=== PATIENT | female | born 1990 | race Caucasian/White ===

== ENCOUNTER 2017-03-10 15:24 | Inpatient (IN) | payer OTHER ==
[2017-03-10 17:17] VITALS: BMI 24.4
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
[2017-03-10] MEDS ORDERED: MAGNESIUM CITRATE 300 ML BOTTLE PO PRN (20:11)
[2017-03-10] MEDS ORDERED: MAGNESIUM HYDROX 2400MG/30ML ORAL SUSPENSION 30 ML CUP PO PRN (20:11)
[2017-03-10] MEDS ORDERED: NICOTINE 14 MG/24 HOURS TOPICAL PATCH TD PRN (20:11)
[2017-03-10] MEDS ORDERED: MENTHOL/PHENOL 1 EACH UD MM PRN (20:11)
[2017-03-10] MEDS ORDERED: MAG HYDROX/AL HYDROX/SIMETH 30 ML UNIT-DOSE CUP PO PRN (20:11)
[2017-03-10] MEDS ORDERED: ACETAMINOPHEN 325 MG TABLET (FP) PO PRN (20:11)
[2017-03-10] MEDS ORDERED: P-EPHED 60MG/TRIPROLIDI 2.5MG TABLET PO PRN (20:11)
[2017-03-10] MEDS ORDERED: IBUPROFEN 400 MG TABLET (FP) PO PRN (20:11)
[2017-03-10] MEDS ORDERED: guaiFENesin/D-METHORPHAN HB 10 ML UNIT-DOSE CUPS PO PRN (20:11)
[2017-03-10] MEDS ORDERED: LOPERAMIDE HCL 2 MG CAPSULE PO PRN (20:11)
[2017-03-10] MEDS ORDERED: ALBUTEROL SO4 6.7 GM HFA INHALER IH PRN (20:13)
[2017-03-10] MEDS: THIAMINE HCL 100 MG TABLET (FP) PO SCH (22:41)
[2017-03-10] MEDS ORDERED: TUBERCULIN PPD 5 TU/0.1ML VIAL ID ONE (22:42)
[2017-03-10 23:05] LABS: URINE APPEARANCE CLOUDY; URINE BILIRUBIN NEGATIVE (NEGATIVE); URINE BLOOD NEGATIVE (NEGATIVE); URINE COLOR RED; URINE GLUCOSE (UA) NEGATIVE (NEGATIVE); URINE KETONE NEGATIVE (NEGATIVE); URINE NITRITE NEGATIVE (NEGATIVE); URINE PROTEIN NEGATIVE (NEGATIVE); URINE UROBILINOGEN 4.0 E.U/dl E.U./dl (0.2-1.0)
[2017-03-10 23:14] LABS: URINE LEUK ESTERASE 3+ (NEGATIVE)
[2017-03-10 23:18] LABS: URINE BACTERIA FEW /hpf (NONE SEEN); URINE MUCUS MODERATE; URINE RBC 2 /hpf (0-3); URINE WBC 30 /hpf (3-5); YEAST RARE
[2017-03-11] MEDS ORDERED: METHADONE HCL 40 MG DISPERSABLE TABLET PO SCH (07:15)
[2017-03-11] MEDS ORDERED: METHADONE HCL 10 MG TABLET ONE (07:30)
[2017-03-11] MEDS ORDERED: METHADONE HCL 40 MG DISPERSABLE TABLET ONE (07:30)
[2017-03-11] MEDS: METHADONE 80 MG, METHADONE 20 MG PO SCH (07:34)
[2017-03-11] MEDS: PRENATAL VITAMINS W/ FOLIC ACID TABLET (FP) PO SCH (09:56)
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
--- NOTE | 2017-03-11 11:58 | EKG ---
Test Reason : Blood Pressure : / mmHG Vent. Rate : 064 BPM Atrial Rate : 064 BPM P-R Int : 138 ms QRS Dur : 080 ms QT Int : 420 ms P-R-T Axes : 037 060 046 degrees QTc Int : 433 ms NORMAL SINUS RHYTHM NORMAL ECG NO PREVIOUS ECGS AVAILABLE Confirmed by MAYURI KRUEGER, ROSIE ([id number]) on 03/11/2017 11:58:18 AM Referred By: Dann Waterman Confirmed By:ROSIE MESSINA MD
[2017-03-11] MEDS: NICOTINE POLACRILEX 2 MG GUM BUC PRN (14:03)
[2017-03-11 14:39] LABS: MCH 29.6 pg (25.7-33.7); MCHC 33.2 g/dl (32.0-36.0); MEAN CELL VOLUME 89.1 fl (80-96); MEAN PLT VOLUME 8.7 fl (7.5-11.1); PLATELET COUNT 256 K/MM3 (134-434); RDW 13.8 % (11.6-15.6)
[2017-03-11 14:48] LABS: ALBUMIN 3.7 g/dl (3.4-5.0); ANION GAP 7 (8-16); BILIRUBIN,TOTAL 0.4 mg/dL (0.2-1.0); CALCIUM 9.6 mg/dL (8.5-10.1); CO2 35 mmol/L (21-32); CREATININE 0.6 mg/dL (0.55-1.02); GLUCOSE,RANDOM 61 mg/dL (74-106); SGOT/AST 45 U/L (15-37); SGPT/ALT 77 U/L (12-78); TOT PROT 7.1 g/dl (6.4-8.2)
[2017-03-11 14:49] LABS: ALK PHOS 125 U/L (45-117)
--- NOTE | 2017-03-11 15:19 | PN ---
[facility] Progress Note Note: Stye rt. eye lower lid P : maxitrol oin't bid
[2017-03-11] MEDS: NEO/POLYMYX B SULF/DEXAMETH OPHTHALMIC OINTMENT 3.5 GM OD SCH (21:10)
[2017-03-11] MEDS: THIAMINE HCL 100 MG TABLET (FP) PO SCH (21:10)
[2017-03-11] MEDS: QUEtiapine FUMARATE 50 MG TABLET PO SCH (21:11)
[2017-03-12] MEDS ORDERED: METHADONE HCL 40 MG DISPERSABLE TABLET ONE (03:14)
[2017-03-12] MEDS ORDERED: METHADONE HCL 10 MG TABLET ONE (03:14)
[2017-03-12] MEDS: METHADONE 80 MG, METHADONE 20 MG PO SCH (06:04)
[2017-03-12] MEDS ORDERED: PT OWN MED DRAWER 7, Y5N ONE ×2 (08:14→09:57)
[2017-03-12] MEDS: PRENATAL VITAMINS W/ FOLIC ACID TABLET (FP) PO SCH (09:57)
[2017-03-12] MEDS: NEO/POLYMYX B SULF/DEXAMETH OPHTHALMIC OINTMENT 3.5 GM OD SCH ×2 (09:58→21:08)
[2017-03-12] MEDS: THIAMINE HCL 100 MG TABLET (FP) PO SCH (21:07)
[2017-03-12] MEDS: QUEtiapine FUMARATE 50 MG TABLET PO SCH (21:07)
[2017-03-13] MEDS ORDERED: METHADONE HCL 10 MG TABLET ONE (05:56)
[2017-03-13] MEDS ORDERED: METHADONE HCL 40 MG DISPERSABLE TABLET ONE (05:56)
[2017-03-13] MEDS: METHADONE 80 MG, METHADONE 20 MG PO SCH (06:33)
[2017-03-13] MEDS ORDERED: PT OWN MED DRAWER 7, Y5N ONE (08:24)
[2017-03-13] MEDS: PRENATAL VITAMINS W/ FOLIC ACID TABLET (FP) PO SCH (09:49)
[2017-03-13] MEDS: NEO/POLYMYX B SULF/DEXAMETH OPHTHALMIC OINTMENT 3.5 GM OD SCH ×2 (09:49→21:03)
--- NOTE | 2017-03-13 13:31 | PN ---
S Progress Note Note: urine for c/s showed lactose fermenting gram negative bacilli will start on bactrim ds 1 tab po bid,fluid
[2017-03-13] MEDS: SULFAMETHOXAZOLE/TRIMETHOPRIM 800MG/160MG D.S. TABLET PO SCH ×2 (14:26→21:03)
[2017-03-13] MEDS: NICOTINE POLACRILEX 2 MG GUM BUC PRN (14:27)
[2017-03-13] MEDS: QUEtiapine FUMARATE 50 MG TABLET PO SCH (21:03)
[2017-03-13] MEDS: THIAMINE HCL 100 MG TABLET (FP) PO SCH (21:03)
[2017-03-14] MEDS ORDERED: METHADONE HCL 10 MG TABLET ONE (03:15)
[2017-03-14] MEDS ORDERED: METHADONE HCL 40 MG DISPERSABLE TABLET ONE (03:16)
[2017-03-14] MEDS: METHADONE 80 MG, METHADONE 20 MG PO SCH (06:22)
[2017-03-14] MEDS ORDERED: PT OWN MED DRAWER 7, Y5N ONE ×2 (08:01→20:03)
[2017-03-14] MEDS: SULFAMETHOXAZOLE/TRIMETHOPRIM 800MG/160MG D.S. TABLET PO SCH ×2 (09:58→21:20)
[2017-03-14] MEDS: PRENATAL VITAMINS W/ FOLIC ACID TABLET (FP) PO SCH (09:58)
[2017-03-14] MEDS: NEO/POLYMYX B SULF/DEXAMETH OPHTHALMIC OINTMENT 3.5 GM OD SCH ×2 (09:59→21:20)
[2017-03-14] MEDS: THIAMINE HCL 100 MG TABLET (FP) PO SCH (21:20)
[2017-03-14] MEDS: diphenhydrAMINE HCL 50 MG CAPSULE PO PRN (21:20)
[2017-03-14] MEDS: QUEtiapine FUMARATE 50 MG TABLET PO SCH (21:20)
[2017-03-15] MEDS ORDERED: METHADONE HCL 40 MG DISPERSABLE TABLET ONE (03:19)
[2017-03-15] MEDS ORDERED: METHADONE HCL 10 MG TABLET ONE (03:19)
[2017-03-15] MEDS: METHADONE 80 MG, METHADONE 20 MG PO SCH (06:16)
[2017-03-15] MEDS ORDERED: PT OWN MED DRAWER 7, Y5N ONE ×2 (08:07→19:35)
[2017-03-15] MEDS: SULFAMETHOXAZOLE/TRIMETHOPRIM 800MG/160MG D.S. TABLET PO SCH ×2 (09:38→21:04)
[2017-03-15] MEDS: PRENATAL VITAMINS W/ FOLIC ACID TABLET (FP) PO SCH (09:38)
[2017-03-15] MEDS: NEO/POLYMYX B SULF/DEXAMETH OPHTHALMIC OINTMENT 3.5 GM OD SCH ×2 (09:38→21:04)
[2017-03-15] MEDS: THIAMINE HCL 100 MG TABLET (FP) PO SCH (21:04)
[2017-03-15] MEDS: diphenhydrAMINE HCL 50 MG CAPSULE PO PRN ×2 (21:04→22:39)
[2017-03-15] MEDS: QUEtiapine FUMARATE 50 MG TABLET PO SCH (21:04)
[2017-03-16] MEDS ORDERED: METHADONE HCL 40 MG DISPERSABLE TABLET ONE (03:19)
[2017-03-16] MEDS ORDERED: METHADONE HCL 10 MG TABLET ONE (03:19)
[2017-03-16] MEDS: METHADONE 80 MG, METHADONE 20 MG PO SCH (06:34)
[2017-03-16] MEDS: PRENATAL VITAMINS W/ FOLIC ACID TABLET (FP) PO SCH (10:06)
[2017-03-16] MEDS: SULFAMETHOXAZOLE/TRIMETHOPRIM 800MG/160MG D.S. TABLET PO SCH ×2 (10:06→21:06)
[2017-03-16] MEDS: NEO/POLYMYX B SULF/DEXAMETH OPHTHALMIC OINTMENT 3.5 GM OD SCH ×2 (10:08→21:07)
--- NOTE | 2017-03-16 17:14 | PN ---
Psychiatric Progress Note Vital Signs: Vital Signs Period Temp Pulse Resp BP Sys/Osei Pulse Ox Last 24 Hr 97.4 F 77 18 111/68 Date of Session: 03/16/17 Chief Complaint:: "Sleep is still a problem,takes time to fall asleep." HPI: Opioid,Sedative deprendence comorbid with Bipolar II disorder. ROS: Significant for Hep C. Current Medications: Active Medications Generic Name Dose Route Start Last Admin Trade Name Freq PRN Reason Stop Dose Admin Acetaminophen 650 mg 03/10/17 20:11 Tylenol - PO Q4H PRN PAIN Al Hydroxide/Mg Hydroxide 30 ml 03/10/17 20:11 Mylanta Oral Suspension - PO Q6H PRN DYSPEPSIA Albuterol Sulfate 2 puff 03/10/17 20:13 Ventolin Hfa Inhaler - IH Q4H PRN SHORT OF BREATH/WHEEZING Bupropion HCl 150 mg 03/11/17 13:57 03/16/17 10:06 Wellbutrin Xl - PO 150 mg DAILY LIVIA Administration Diphenhydramine HCl 50 mg 03/10/17 20:11 03/15/17 22:39 Benadryl - PO 50 mg HSMR1 PRN Administration INSOMNIA Eucalyptus/Menthol/Phenol/Sorbitol 1 each 03/10/17 20:11 Cepastat Lozenge - MM Q4H PRN SORE THROAT Guaifenesin 10 ml 03/10/17 20:11 Robitussin Dm - PO Q6H PRN COUGH Ibuprofen 400 mg 03/10/17 20:11 Motrin - PO Q6H PRN SEVERE PAIN Loperamide HCl 4 mg 03/10/17 20:11 Imodium - PO Q6H PRN DIARRHEA Magnesium Citrate 300 ml 03/10/17 20:11 Citroma - PO Q48H PRN CONSTIPATION Magnesium Hydroxide 30 ml 03/10/17 20:11 Milk Of Magnesia - PO DAILY PRN CONSTIPATION Methadone HCl 80 mg/ Methadone 100 mg 03/11/17 07:30 03/16/17 06:34 HCl 20 mg PO 100 mg DAILY@0600 LIVIA Administration Neomycin/Polymyxin/Dexamethasone 1 applic 03/11/17 22:00 03/16/17 10:08 Maxitrol Eye Ointment - OD 03/18/17 21:59 1 applic BID LIVIA Administration Nicotine 14 mg 03/10/17 20:11 Nicoderm Patch - TD DAILY PRN WITHDRAWAL(CONT SUBST) Nicotine Polacrilex 2 mg 03/10/17 20:11 03/13/17 14:27 Nicorette Gum - BUC 2 mg Q2H PRN Administration NICOTINE REPLACEMENT RX Multivit/Folic Acid/Iron 1 tab 03/11/17 10:00 03/16/17 10:06 Vitamins (Sjr) - PO 1 tab DAILY LIVIA Administration Pseudoephedrine/Triprolidine 1 combo 03/10/17 20:11 Actifed - PO TID PRN NASAL CONGESTION Thiamine HCl 100 mg 03/10/17 22:00 03/15/17 21:04 Vitamin B1 - PO 100 mg HS LIVIA Administration Trimethoprim/Sulfamethoxazole 1 each 03/13/17 14:15 03/16/17 10:06 Bactrim Ds - PO 1 each BID LIVIA Administration Current Side Effect: No Lab tests ordered: No Lab tests reviewed: Yes Provider note:: Patient addressed ongoing sleeping difficulties,stating that it takes time to fall asleep and her sleep pattern is vry interrupted .Patient was seen in my office today,chart was revuewed.Current medications has been discussed with the patient .Seroquel 50 mg po hs will be adjusted to 100 mg po hs. supportive therapy provided. Total face to face time:: 30 Mental Status Exam - Mental Status Exam Alert and Oriented to: Time, Place, Person Cognitive Function: Grossly Intact Patient Appearance: Well Groomed Mood: Anxious Affect: Mood Congruent Patient Behavior: Cooperative Speech Pattern: Clear Voice Loudness: Normal Thought Process: Goal Oriented Thought Disorder: Not Present Hallucinations: Denies Homicidal Ideation: Denies Insight/Judgement: Fair Sleep: Difficulty falling asleep Appetite: Good Muscle strength/Tone: Normal Gait/Station: Normal Psychiatric Treatment Plan - Problem List (1) Nicotine dependence Current Visit: Yes Qualifiers: Nicotine product type: cigarettes Substance use status: in withdrawal Qualified Code(s): F17.213 - Nicotine dependence, cigarettes, with withdrawal (2) Sedative, hypnotic or anxiolytic dependence with withdrawal, uncomplicated Current Visit: Yes (3) Asthma Current Visit: Yes Qualifiers: Asthma severity: mild intermittent Asthma complication type: with status asthmaticus Qualified Code(s): J45.22 - Mild intermittent asthma with status asthmaticus (4) Methadone maintenance therapy patient Current Visit: Yes Comment: 100 MG VERIFICATION PENDING (5) Bipolar II disorder Current Visit: Yes (6) Hepatitis C antibody test positive Current Visit: Yes
[2017-03-16] MEDS: THIAMINE HCL 100 MG TABLET (FP) PO SCH (21:06)
[2017-03-16] MEDS: QUEtiapine FUMARATE 100 MG TABLET (FP) PO SCH (21:08)
[2017-03-16] MEDS: diphenhydrAMINE HCL 50 MG CAPSULE PO PRN (21:08)
[2017-03-17] MEDS ORDERED: METHADONE HCL 10 MG TABLET ONE (05:49)
[2017-03-17] MEDS ORDERED: METHADONE HCL 40 MG DISPERSABLE TABLET ONE (05:49)
[2017-03-17] MEDS: METHADONE 80 MG, METHADONE 20 MG PO SCH (06:32)
[2017-03-17] MEDS: NEO/POLYMYX B SULF/DEXAMETH OPHTHALMIC OINTMENT 3.5 GM OD SCH ×2 (09:59→21:12)
[2017-03-17] MEDS: PRENATAL VITAMINS W/ FOLIC ACID TABLET (FP) PO SCH (09:59)
[2017-03-17] MEDS: SULFAMETHOXAZOLE/TRIMETHOPRIM 800MG/160MG D.S. TABLET PO SCH ×2 (09:59→21:11)
[2017-03-17] MEDS: diphenhydrAMINE HCL 50 MG CAPSULE PO PRN (21:11)
[2017-03-17] MEDS: QUEtiapine FUMARATE 100 MG TABLET (FP) PO SCH (21:11)
[2017-03-17] MEDS: THIAMINE HCL 100 MG TABLET (FP) PO SCH (21:11)
[2017-03-18] MEDS ORDERED: METHADONE HCL 40 MG DISPERSABLE TABLET ONE (03:17)
[2017-03-18] MEDS ORDERED: METHADONE HCL 10 MG TABLET ONE (03:17)
[2017-03-18] MEDS: METHADONE 80 MG, METHADONE 20 MG PO SCH (06:27)
[2017-03-18] MEDS ORDERED: PT OWN MED DRAWER 7, Y5N ONE (08:07)
[2017-03-18] MEDS: NEO/POLYMYX B SULF/DEXAMETH OPHTHALMIC OINTMENT 3.5 GM OD SCH (09:42)
[2017-03-18] MEDS: PRENATAL VITAMINS W/ FOLIC ACID TABLET (FP) PO SCH (09:42)
[2017-03-18] MEDS: SULFAMETHOXAZOLE/TRIMETHOPRIM 800MG/160MG D.S. TABLET PO SCH ×2 (09:42→21:12)
[2017-03-18] MEDS: diphenhydrAMINE HCL 50 MG CAPSULE PO PRN (21:12)
[2017-03-18] MEDS: THIAMINE HCL 100 MG TABLET (FP) PO SCH (21:12)
[2017-03-18] MEDS: QUEtiapine FUMARATE 50 MG TABLET PO SCH (21:13)
[2017-03-19] MEDS ORDERED: METHADONE HCL 10 MG TABLET ONE (06:10)
[2017-03-19] MEDS ORDERED: METHADONE HCL 40 MG DISPERSABLE TABLET ONE (06:11)
[2017-03-19] MEDS: METHADONE 80 MG, METHADONE 20 MG PO SCH (06:30)
[2017-03-19] MEDS: PRENATAL VITAMINS W/ FOLIC ACID TABLET (FP) PO SCH (09:46)
[2017-03-19] MEDS: SULFAMETHOXAZOLE/TRIMETHOPRIM 800MG/160MG D.S. TABLET PO SCH ×2 (09:46→21:04)
[2017-03-19] MEDS: QUEtiapine FUMARATE 50 MG TABLET PO SCH (21:03)
[2017-03-19] MEDS: diphenhydrAMINE HCL 50 MG CAPSULE PO PRN (21:04)
[2017-03-19] MEDS: THIAMINE HCL 100 MG TABLET (FP) PO SCH (21:04)
[2017-03-20] MEDS ORDERED: METHADONE HCL 10 MG TABLET ONE (03:17)
[2017-03-20] MEDS ORDERED: METHADONE HCL 40 MG DISPERSABLE TABLET ONE (03:17)
[2017-03-20] MEDS: METHADONE 80 MG, METHADONE 20 MG PO SCH (06:16)
[2017-03-20] MEDS: SULFAMETHOXAZOLE/TRIMETHOPRIM 800MG/160MG D.S. TABLET PO SCH ×2 (09:53→21:16)
[2017-03-20] MEDS: PRENATAL VITAMINS W/ FOLIC ACID TABLET (FP) PO SCH (09:53)
[2017-03-20] MEDS: diphenhydrAMINE HCL 50 MG CAPSULE PO PRN (21:16)
[2017-03-20] MEDS: THIAMINE HCL 100 MG TABLET (FP) PO SCH (21:16)
[2017-03-20] MEDS: QUEtiapine FUMARATE 50 MG TABLET PO SCH (21:17)
[2017-03-21] MEDS ORDERED: METHADONE HCL 40 MG DISPERSABLE TABLET ONE (05:39)
[2017-03-21] MEDS ORDERED: METHADONE HCL 10 MG TABLET ONE (05:39)
[2017-03-21] MEDS: METHADONE 80 MG, METHADONE 20 MG PO SCH (06:48)
[2017-03-21] MEDS: SULFAMETHOXAZOLE/TRIMETHOPRIM 800MG/160MG D.S. TABLET PO SCH ×2 (10:05→21:11)
[2017-03-21] MEDS: PRENATAL VITAMINS W/ FOLIC ACID TABLET (FP) PO SCH (10:05)
[2017-03-21] MEDS: THIAMINE HCL 100 MG TABLET (FP) PO SCH (21:11)
[2017-03-21] MEDS: QUEtiapine FUMARATE 50 MG TABLET PO SCH (21:11)
[2017-03-21] MEDS: diphenhydrAMINE HCL 50 MG CAPSULE PO PRN (21:12)
[2017-03-21] MEDS ORDERED: PT OWN MED DRAWER 7, Y5N ONE (21:48)
[2017-03-22] MEDS ORDERED: METHADONE HCL 40 MG DISPERSABLE TABLET ONE (05:30)
[2017-03-22] MEDS ORDERED: METHADONE HCL 10 MG TABLET ONE (05:30)
[2017-03-22] MEDS: METHADONE 80 MG, METHADONE 20 MG PO SCH (06:40)
[2017-03-22] MEDS: SULFAMETHOXAZOLE/TRIMETHOPRIM 800MG/160MG D.S. TABLET PO SCH ×2 (09:41→22:10)
[2017-03-22] MEDS: PRENATAL VITAMINS W/ FOLIC ACID TABLET (FP) PO SCH (09:41)
[2017-03-22] MEDS: QUEtiapine FUMARATE 50 MG TABLET PO SCH (21:06)
[2017-03-22] MEDS: THIAMINE HCL 100 MG TABLET (FP) PO SCH (21:06)
[2017-03-22] MEDS: diphenhydrAMINE HCL 50 MG CAPSULE PO PRN (21:06)
[2017-03-23] MEDS ORDERED: METHADONE HCL 10 MG TABLET ONE (05:38)
[2017-03-23] MEDS ORDERED: METHADONE HCL 40 MG DISPERSABLE TABLET ONE (05:38)
[2017-03-23] MEDS: METHADONE 80 MG, METHADONE 20 MG PO SCH (06:11)
[2017-03-23] MEDS ORDERED: PT OWN MED DRAWER 7, Y5N ONE (08:40)
[2017-03-23] MEDS: SULFAMETHOXAZOLE/TRIMETHOPRIM 800MG/160MG D.S. TABLET PO SCH ×2 (10:08→21:11)
[2017-03-23] MEDS: PRENATAL VITAMINS W/ FOLIC ACID TABLET (FP) PO SCH (10:09)
[2017-03-23] MEDS: QUEtiapine FUMARATE 50 MG TABLET PO SCH (21:11)
[2017-03-23] MEDS: THIAMINE HCL 100 MG TABLET (FP) PO SCH (21:11)
[2017-03-23] MEDS: diphenhydrAMINE HCL 50 MG CAPSULE PO PRN (21:11)
[2017-03-24] MEDS ORDERED: METHADONE HCL 40 MG DISPERSABLE TABLET ONE (03:10)
[2017-03-24] MEDS ORDERED: METHADONE HCL 10 MG TABLET ONE (03:10)
[2017-03-24] MEDS: METHADONE 80 MG, METHADONE 20 MG PO SCH (06:12)
[2017-03-24] MEDS: PRENATAL VITAMINS W/ FOLIC ACID TABLET (FP) PO SCH (10:09)
[2017-03-24] MEDS: SULFAMETHOXAZOLE/TRIMETHOPRIM 800MG/160MG D.S. TABLET PO SCH ×2 (10:09→21:12)
[2017-03-24] MEDS: QUEtiapine FUMARATE 50 MG TABLET PO SCH (21:12)
[2017-03-24] MEDS: THIAMINE HCL 100 MG TABLET (FP) PO SCH (21:12)
[2017-03-24] MEDS: diphenhydrAMINE HCL 50 MG CAPSULE PO PRN (21:12)
[2017-03-25] MEDS ORDERED: METHADONE HCL 10 MG TABLET ONE (03:07)
[2017-03-25] MEDS ORDERED: METHADONE HCL 40 MG DISPERSABLE TABLET ONE (03:08)
[2017-03-25] MEDS: METHADONE 80 MG, METHADONE 20 MG PO SCH (06:17)
[2017-03-25] MEDS: SULFAMETHOXAZOLE/TRIMETHOPRIM 800MG/160MG D.S. TABLET PO SCH ×2 (10:04→21:07)
[2017-03-25] MEDS: PRENATAL VITAMINS W/ FOLIC ACID TABLET (FP) PO SCH (10:04)
[2017-03-25] MEDS: diphenhydrAMINE HCL 50 MG CAPSULE PO PRN (21:05)
[2017-03-25] MEDS: QUEtiapine FUMARATE 50 MG TABLET PO SCH (21:05)
[2017-03-25] MEDS: THIAMINE HCL 100 MG TABLET (FP) PO SCH (21:05)
[2017-03-26] MEDS ORDERED: METHADONE HCL 10 MG TABLET ONE (03:08)
[2017-03-26] MEDS ORDERED: METHADONE HCL 40 MG DISPERSABLE TABLET ONE (03:08)
[2017-03-26] MEDS: METHADONE 80 MG, METHADONE 20 MG PO SCH (06:46)
[2017-03-26] MEDS: PRENATAL VITAMINS W/ FOLIC ACID TABLET (FP) PO SCH (09:56)
[2017-03-26] MEDS: SULFAMETHOXAZOLE/TRIMETHOPRIM 800MG/160MG D.S. TABLET PO SCH ×2 (09:56→21:11)
[2017-03-26] MEDS: THIAMINE HCL 100 MG TABLET (FP) PO SCH (21:10)
[2017-03-26] MEDS: QUEtiapine FUMARATE 50 MG TABLET PO SCH (21:10)
[2017-03-26] MEDS: diphenhydrAMINE HCL 50 MG CAPSULE PO PRN (21:11)
[2017-03-27] MEDS ORDERED: METHADONE HCL 40 MG DISPERSABLE TABLET ONE (05:40)
[2017-03-27] MEDS ORDERED: METHADONE HCL 10 MG TABLET ONE (05:40)
[2017-03-27] MEDS: METHADONE 80 MG, METHADONE 20 MG PO SCH (06:31)
[2017-03-27] MEDS: PRENATAL VITAMINS W/ FOLIC ACID TABLET (FP) PO SCH (10:09)
[2017-03-27] MEDS: QUEtiapine FUMARATE 50 MG TABLET PO SCH (21:11)
[2017-03-27] MEDS: diphenhydrAMINE HCL 50 MG CAPSULE PO PRN (21:12)
[2017-03-27] MEDS: THIAMINE HCL 100 MG TABLET (FP) PO SCH (21:12)
[2017-03-28] MEDS ORDERED: METHADONE HCL 40 MG DISPERSABLE TABLET ONE (06:19)
[2017-03-28] MEDS ORDERED: METHADONE HCL 10 MG TABLET ONE (06:19)
[2017-03-28] MEDS: METHADONE 80 MG, METHADONE 20 MG PO SCH (06:24)
[2017-03-28] MEDS ORDERED: COLLOIDAL OATMEAL 1 BAR EACH TP PRN (08:57)
[2017-03-28] MEDS: PRENATAL VITAMINS W/ FOLIC ACID TABLET (FP) PO SCH (09:06)
[2017-03-28] MEDS: QUEtiapine FUMARATE 50 MG TABLET PO SCH (21:03)
[2017-03-28] MEDS: diphenhydrAMINE HCL 50 MG CAPSULE PO PRN (21:03)
[2017-03-28] MEDS: THIAMINE HCL 100 MG TABLET (FP) PO SCH (21:05)
[2017-03-28] MEDS ORDERED: INSULIN DETEMIR 100 UNITS/ML MDV SQ ONE (22:33)
[2017-03-29] MEDS ORDERED: METHADONE HCL 10 MG TABLET ONE (03:10)
[2017-03-29] MEDS ORDERED: METHADONE HCL 40 MG DISPERSABLE TABLET ONE (03:10)
[2017-03-29] MEDS: METHADONE 80 MG, METHADONE 20 MG PO SCH (06:37)
[2017-03-29] MEDS: PRENATAL VITAMINS W/ FOLIC ACID TABLET (FP) PO SCH (09:49)
[2017-03-29] MEDS: diphenhydrAMINE HCL 50 MG CAPSULE PO PRN (21:09)
[2017-03-29] MEDS: THIAMINE HCL 100 MG TABLET (FP) PO SCH (21:09)
[2017-03-29] MEDS: QUEtiapine FUMARATE 50 MG TABLET PO SCH (21:09)
[2017-03-30] MEDS ORDERED: METHADONE HCL 40 MG DISPERSABLE TABLET ONE (03:10)
[2017-03-30] MEDS ORDERED: METHADONE HCL 10 MG TABLET ONE (03:10)
[2017-03-30] MEDS: METHADONE 80 MG, METHADONE 20 MG PO SCH (06:30)
[2017-03-30] MEDS: PRENATAL VITAMINS W/ FOLIC ACID TABLET (FP) PO SCH (09:52)
[2017-03-30] MEDS: THIAMINE HCL 100 MG TABLET (FP) PO SCH (21:12)
[2017-03-30] MEDS: QUEtiapine FUMARATE 50 MG TABLET PO SCH (21:12)
[2017-03-30] MEDS: diphenhydrAMINE HCL 50 MG CAPSULE PO PRN (21:12)
[2017-03-30] MEDS ORDERED: PT OWN MED DRAWER 7, Y5N ONE (23:08)
[2017-03-31] MEDS ORDERED: METHADONE HCL 10 MG TABLET ONE (05:39)
[2017-03-31] MEDS ORDERED: METHADONE HCL 40 MG DISPERSABLE TABLET ONE (05:39)
[2017-03-31] MEDS: METHADONE 80 MG, METHADONE 20 MG PO SCH (06:16)
[2017-03-31 06:33] VITALS: BP 102/64; PULSE 83; TEMP 98
--- NOTE | 2017-03-31 09:27 | PN ---
Psychiatric Progress Note Vital Signs: Vital Signs Period Temp Pulse Resp BP Sys/Osei Pulse Ox Last 24 Hr 98.0 F 83 16- 102/64 Date of Session: 03/30/17 Chief Complaint:: Discharge visit HPI: Patient addressed Opioid and Anxiolytic dependence comorbid with Bipolar disorder. ROS: Significant for BA,HEp C. Current Medications: Active Medications Generic Name Dose Route Start Last Admin Trade Name Freq PRN Reason Stop Dose Admin Acetaminophen 650 mg 03/10/17 20:11 Tylenol - PO Q4H PRN PAIN Al Hydroxide/Mg Hydroxide 30 ml 03/10/17 20:11 Mylanta Oral Suspension - PO Q6H PRN DYSPEPSIA Albuterol Sulfate 2 puff 03/10/17 20:13 Ventolin Hfa Inhaler - IH Q4H PRN SHORT OF BREATH/WHEEZING Bupropion HCl 150 mg 03/11/17 13:57 03/30/17 10:41 Wellbutrin Xl - PO 150 mg DAILY LIVIA Administration Colloidal Oatmeal 1 applic 03/28/17 08:57 03/28/17 09:05 Aveeno Soap - TP 1 bar DAILY PRN Administration HYGEINE Diphenhydramine HCl 50 mg 03/10/17 20:11 03/30/17 21:12 Benadryl - PO 50 mg HSMR1 PRN Administration INSOMNIA Eucalyptus/Menthol/Phenol/Sorbitol 1 each 03/10/17 20:11 Cepastat Lozenge - MM Q4H PRN SORE THROAT Guaifenesin 10 ml 03/10/17 20:11 Robitussin Dm - PO Q6H PRN COUGH Ibuprofen 400 mg 03/10/17 20:11 Motrin - PO Q6H PRN SEVERE PAIN Loperamide HCl 4 mg 03/10/17 20:11 Imodium - PO Q6H PRN DIARRHEA Magnesium Citrate 300 ml 03/10/17 20:11 Citroma - PO Q48H PRN CONSTIPATION Magnesium Hydroxide 30 ml 03/10/17 20:11 Milk Of Magnesia - PO DAILY PRN CONSTIPATION Methadone HCl 80 mg/ Methadone 100 mg 03/27/17 06:00 03/31/17 06:16 HCl 20 mg PO 04/02/17 05:59 100 mg DAILY@0600 LIVIA Administration Nicotine 14 mg 03/10/17 20:11 Nicoderm Patch - TD DAILY PRN WITHDRAWAL(CONT SUBST) Nicotine Polacrilex 2 mg 03/10/17 20:11 03/13/17 14:27 Nicorette Gum - BUC 2 mg Q2H PRN Administration NICOTINE REPLACEMENT RX Multivit/Folic Acid/Iron 1 tab 03/11/17 10:00 03/30/17 09:52 Vitamins (Sjr) - PO 1 tab DAILY LIVIA Administration Pseudoephedrine/Triprolidine 1 combo 03/10/17 20:11 Actifed - PO TID PRN NASAL CONGESTION Quetiapine Fumarate 150 mg 03/18/17 22:00 03/30/17 21:12 Seroquel - PO 150 mg HS LIVIA Administration Thiamine HCl 100 mg 03/10/17 22:00 03/30/17 21:12 Vitamin B1 - PO 100 mg HS LIVIA Administration Current Side Effect: No Lab tests ordered: No Lab tests reviewed: Yes Provider note:: Patient completed this program today(Managed care discharge) .She has partially met her treatment goals and will continue to addres her issues on outpatient basis at [facility] program.Patient will continue current medications as per plan.Scripts for Seroquel 150 mg po hs and Wellbutrin XL 150 mg po daily provided. Patient is stable for discharge today. Supportive therapy provided focusing on relapose prevention.Seroquel 150 mg po hs and Wellbutrin XL 150 mg po daily. Total face to face time:: 30 Mental Status Exam - Mental Status Exam Alert and Oriented to: Time, Place, Person Cognitive Function: Grossly Intact Patient Appearance: Well Groomed Mood: Euthymic Affect: Mood Congruent Patient Behavior: Cooperative Speech Pattern: Clear Voice Loudness: Normal Thought Process: Goal Oriented Thought Disorder: Not Present Hallucinations: Denies Suicidal Ideation: Denies Homicidal Ideation: Denies Insight/Judgement: Fair Sleep: Fair Appetite: Good Muscle strength/Tone: Normal Gait/Station: Normal Psychiatric Treatment Plan - Problem List (1) Nicotine dependence Qualifiers: Nicotine product type: cigarettes Substance use status: in withdrawal Qualified Code(s): F17.213 - Nicotine dependence, cigarettes, with withdrawal (3) Asthma Qualifiers: Asthma severity: mild intermittent Asthma complication type: with status asthmaticus Qualified Code(s): J45.22 - Mild intermittent asthma with status asthmaticus (4) Methadone maintenance therapy patient Comment: 100 MG VERIFICATION PENDING
[2017-03-31] MEDS: PRENATAL VITAMINS W/ FOLIC ACID TABLET (FP) PO SCH (09:39)
== END 2017-03-31 10:08 | disposition home or self-care (01) | DRG 772 ==
LOC: YASAS 15:24 → Y3E 20:25
PROVIDERS: ADMIT Psychiatry & Neurology Psychiatry; ATTEND Psychiatry & Neurology Psychiatry
PROC: HZ42ZZZ Group Counseling for Substance Abuse Treatment, Cognitive-Behavioral (ICD-10-PCS; principal; 2017-03-10)
DX: F13.20 Sedative, hypnotic or anxiolytic dependence, uncomplicated (principal); F11.20 Opioid dependence, uncomplicated; F17.213 Nicotine dependence, cigarettes, with withdrawal; F31.81 Bipolar II disorder; J45.22 Mild intermittent asthma with status asthmaticus; B18.2 Chronic viral hepatitis C; H00.013 Hordeolum externum right eye, unspecified eyelid; B96.89 Other specified bacterial agents as the cause of diseases classified elsewhere; Z91.5 Personal history of self-harm
CPT/HCPCS: 36415; 80053; 81003; 81015; 85027; 86593; 87086; 87186; 93005; 93010

== ENCOUNTER 2018-06-17 15:52 | Inpatient (IN) | payer OTHER ==
[2018-06-17 19:22] VITALS: BMI 23.3
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
[2018-06-17] MEDS ORDERED: P-EPHED 60MG/TRIPROLIDI 2.5MG TABLET PO PRN (20:09)
[2018-06-17] MEDS ORDERED: NICOTINE POLACRILEX 2 MG GUM BC PRN (20:09)
[2018-06-17] MEDS ORDERED: hydrOXYzine PAMOATE 50 MG CAPSULE (FP) PO PRN (20:09)
[2018-06-17] MEDS ORDERED: MAG HYDROX/AL HYDROX/SIMETH 30 ML UNIT-DOSE CUP PO PRN (20:09)
[2018-06-17] MEDS ORDERED: MAGNESIUM CITRATE 300 ML BOTTLE PO PRN (20:09)
[2018-06-17] MEDS ORDERED: MENTHOL/PHENOL 1 EACH UD MM PRN (20:09)
[2018-06-17] MEDS ORDERED: LOPERAMIDE HCL 2 MG CAPSULE PO PRN (20:09)
[2018-06-17] MEDS ORDERED: MAGNESIUM HYDROX 2400MG/30ML ORAL SUSPENSION 30 ML CUP PO PRN (20:09)
[2018-06-17] MEDS ORDERED: guaiFENesin/D-METHORPHAN HB 10 ML UNIT-DOSE CUPS PO PRN (20:09)
[2018-06-17] MEDS ORDERED: BACITRACIN 0.9 GM PACKET TP ONE (20:24)
[2018-06-17] MEDS ORDERED: ALBUTEROL SO4 0.083% IH SOL 2.5 MG/3 ML VIAL.NEB. NEB PRN (21:25)
[2018-06-17] MEDS ORDERED: TUBERCULIN PPD 5 TU/0.1ML VIAL ID ONE (22:37)
[2018-06-17] MEDS: THIAMINE HCL 100 MG TABLET (FP) PO SCH (23:32)
[2018-06-17] MEDS: QUEtiapine FUMARATE 100 MG TABLET (FP) PO SCH (23:33)
[2018-06-18 00:06] LABS: URINE APPEARANCE CLOUDY; URINE BILIRUBIN NEGATIVE (<2.0 mg/dL); URINE COLOR AMBER; URINE GLUCOSE (UA) NEGATIVE (NEGATIVE); URINE KETONE NEGATIVE (NEGATIVE); URINE NITRITE NEGATIVE (NEGATIVE); URINE PROTEIN NEGATIVE (NEGATIVE); URINE UROBILINOGEN 4.0 E.U/dl mg/dL (0.2-1.0)
[2018-06-18 00:08] LABS: URINE LEUK ESTERASE 1+ (NEGATIVE)
[2018-06-18 00:20] LABS: EPI CELLS MODERATE /HPF (FEW); URINE MUCUS FEW
--- NOTE | 2018-06-18 09:27 | EKG ---
Test Reason : Blood Pressure : / mmHG Vent. Rate : 066 BPM Atrial Rate : 066 BPM P-R Int : 146 ms QRS Dur : 076 ms QT Int : 424 ms P-R-T Axes : 034 068 052 degrees QTc Int : 444 ms NORMAL SINUS RHYTHM POSSIBLE LATERAL INFARCT , AGE UNDETERMINED ABNORMAL ECG WHEN COMPARED WITH ECG OF 10-MAR-2017 22:02, NO SIGNIFICANT CHANGE WAS FOUND Confirmed by SAMI OSUNA MD ([id number]) on 06/18/2018 9:26:53 AM Referred By: Confirmed By:SAMI OSUNA MD
[2018-06-18 09:45] LABS: HEMATOCRIT 42.6 % (32.4-45.2); MCH 28.7 pg (25.7-33.7); MEAN CELL VOLUME 87.1 fl (80-96); MEAN PLT VOLUME 8.8 fl (7.5-11.1); PLATELET COUNT 252 K/MM3 (134-434); RBC 4.89 M/mm3 (3.60-5.2); RDW 13.1 % (11.6-15.6); WHITE BLOOD COUNT 6.6 K/mm3 (4.0-10.0)
[2018-06-18 10:25] LABS: CHLORIDE 103 mmol/L (98-107); POTASSIUM 3.8 mmol/L (3.5-5.1); SODIUM 141 mmol/L (136-145)
[2018-06-18 10:32] LABS: ALK PHOS 121 U/L (45-117); ANION GAP 6 MMOL/L (8-16); BILIRUBIN,TOTAL 0.4 mg/dL (0.2-1.0); BLOOD UREA NITROGEN 11 mg/dL (7-18); CALCIUM 8.3 mg/dL (8.5-10.1); CO2 32 mmol/L (21-32); CREATININE 0.6 mg/dL (0.55-1.02); GLUCOSE,RANDOM 80 mg/dL (74-106); SGOT/AST 33 U/L (15-37); SGPT/ALT 46 U/L (12-78); TOT PROT 6.1 g/dl (6.4-8.2)
[2018-06-18] MEDS: PRENATAL VITAMINS W/ FOLIC ACID TABLET (FP) PO SCH (10:56)
[2018-06-18] MEDS: NICOTINE 21 MG/24 HOURS TOPICAL PATCH TD SCH (10:56)
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
[2018-06-18] MEDS ORDERED: METHADONE HCL 10 MG TABLET PO ONE (11:41)
[2018-06-18] MEDS ORDERED: METHADONE 80 MG, METHADONE 20 MG PO ONE (12:00)
[2018-06-18] MEDS ORDERED: METHADONE HCL 10 MG TABLET ONE ×2 (12:30→18:01)
[2018-06-18] MEDS ORDERED: METHADONE HCL 40 MG DISPERSABLE TABLET ONE ×2 (12:30→18:02)
[2018-06-18] MEDS ORDERED: METHADONE 80 MG, METHADONE 20 MG PO SCH (17:48)
--- NOTE | 2018-06-18 17:52 | PN ---
[facility] Progress Note Note: Patient did not take methadone earlier today and is requesting now. Nurse will inform patient to set up a specific time to take methadone for future dosing. Earlier methadone dose cancelled and a new order for today's dosing will be written.
[2018-06-18] MEDS: METHADONE 80 MG, METHADONE 20 MG PO SCH (18:06)
[2018-06-18] MEDS: IBUPROFEN 400 MG TABLET (FP) PO PRN (18:11)
[2018-06-18] MEDS: THIAMINE HCL 100 MG TABLET (FP) PO SCH (21:30)
[2018-06-18] MEDS: QUEtiapine FUMARATE 100 MG TABLET (FP) PO SCH (21:30)
[2018-06-18] MEDS: MELATONIN 5 MG TABLETS PO PRN (21:31)
[2018-06-19] MEDS ORDERED: METHADONE HCL 40 MG DISPERSABLE TABLET ONE (03:54)
[2018-06-19] MEDS ORDERED: METHADONE HCL 10 MG TABLET ONE (03:54)
[2018-06-19] MEDS ORDERED: METHADONE HCL 10 MG TABLET PO SCH (06:00)
[2018-06-19] MEDS ORDERED: METHADONE 80 MG, METHADONE 20 MG PO SCH ×3 (06:00)
[2018-06-19] MEDS: METHADONE 80 MG, METHADONE 20 MG PO SCH (07:13)
[2018-06-19] MEDS: PRENATAL VITAMINS W/ FOLIC ACID TABLET (FP) PO SCH (09:45)
[2018-06-19] MEDS: IBUPROFEN 400 MG TABLET (FP) PO PRN ×2 (09:45→21:33)
[2018-06-19] MEDS: NICOTINE 21 MG/24 HOURS TOPICAL PATCH TD SCH (10:15)
--- NOTE | 2018-06-19 13:55 | PN ---
[facility] Progress Note Note: Vital Signs Temperature 97.1 F L 06/19/18 07:34 Pulse Rate 59 L 06/19/18 07:34 Respiratory Rate 18 06/19/18 07:34 Blood Pressure 100/68 06/19/18 07:34 O2 Sat by Pulse Oximetry (%) Laboratory Last Values WBC 6.6 K/mm3 (4.0-10.0) 06/18/18 07:00 RBC 4.89 M/mm3 (3.60-5.2) 06/18/18 07:00 Hgb 14.0 GM/dL (10.7-15.3) 06/18/18 07:00 Hct 42.6 % (32.4-45.2) 06/18/18 07:00 MCV 87.1 fl (80-96) 06/18/18 07:00 MCH 28.7 pg (25.7-33.7) 06/18/18 07:00 MCHC 33.0 g/dl (32.0-36.0) 06/18/18 07:00 RDW 13.1 % (11.6-15.6) 06/18/18 07:00 Plt Count 252 K/MM3 (134-434) 06/18/18 07:00 MPV 8.8 fl (7.5-11.1) 06/18/18 07:00 Sodium 141 mmol/L (136-145) 06/18/18 07:00 Potassium 3.8 mmol/L (3.5-5.1) 06/18/18 07:00 Chloride 103 mmol/L (98-107) 06/18/18 07:00 Carbon Dioxide 32 mmol/L (21-32) 06/18/18 07:00 Anion Gap 6 MMOL/L (8-16) L 06/18/18 07:00 BUN 11 mg/dL (7-18) 06/18/18 07:00 Creatinine 0.6 mg/dL (0.55-1.02) 06/18/18 07:00 Creat Clearance w eGFR > 60 (>60) 06/18/18 07:00 Random Glucose 80 mg/dL (74-106) 06/18/18 07:00 Calcium 8.3 mg/dL (8.5-10.1) L 06/18/18 07:00 Total Bilirubin 0.4 mg/dL (0.2-1.0) 06/18/18 07:00 AST 33 U/L (15-37) 06/18/18 07:00 ALT 46 U/L (12-78) 06/18/18 07:00 Alkaline Phosphatase 121 U/L (45-117) H 06/18/18 07:00 Total Protein 6.1 g/dl (6.4-8.2) L 06/18/18 07:00 Albumin 3.0 g/dl (3.4-5.0) L 06/18/18 07:00 Urine Color Ross[place] 06/17/18 23:06 Urine Appearance Cloudy 06/17/18 23:06 Urine pH 6.0 (5.0-8.0) 06/17/18 23:06 Ur Specific [place] 1.023 (1.001-1.035) 06/17/18 23:06 Urine Protein Negative (NEGATIVE) 06/17/18 23:06 Urine Glucose (UA) Negative (NEGATIVE) 06/17/18 23:06 Urine Ketones Negative (NEGATIVE) 06/17/18 23:06 Urine Blood Negative (NEGATIVE) 06/17/18 23:06 Urine Nitrite Negative (NEGATIVE) 06/17/18 23:06 Urine Bilirubin Negative (<2.0 mg/dL) 06/17/18 23:06 Urine Urobilinogen 4.0 e.u/dl mg/dL (0.2-1.0) H 06/17/18 23:06 Ur Leukocyte Esterase 1+ (NEGATIVE) H D 06/17/18 23:06 Urine WBC (Auto) 22 /hpf (3-5) 06/17/18 23:06 Urine RBC (Auto) 1 /hpf (0-3) 06/17/18 23:06 Ur Epithelial Cells Moderate /HPF (FEW) 06/17/18 23:06 Urine Mucus Few 06/17/18 23:06 RPR Titer Nonreactive (NONREACTIVE) 06/18/18 07:00 HIV 1&2 Antibody Screen Negative 06/18/18 07:00 HIV P24 Antigen Negative 06/18/18 07:00 labs reviewed continue to monitor
[2018-06-19] MEDS: QUEtiapine FUMARATE 100 MG TABLET (FP) PO SCH (21:30)
[2018-06-19] MEDS: THIAMINE HCL 100 MG TABLET (FP) PO SCH (21:31)
[2018-06-19] MEDS: MELATONIN 5 MG TABLETS PO PRN (21:32)
[2018-06-20] MEDS ORDERED: METHADONE HCL 10 MG TABLET ONE (03:20)
[2018-06-20] MEDS ORDERED: METHADONE HCL 40 MG DISPERSABLE TABLET ONE (03:20)
[2018-06-20] MEDS: METHADONE 80 MG, METHADONE 20 MG PO SCH (06:51)
[2018-06-20] MEDS: IBUPROFEN 400 MG TABLET (FP) PO PRN ×2 (06:52→21:36)
[2018-06-20] MEDS: PRENATAL VITAMINS W/ FOLIC ACID TABLET (FP) PO SCH (09:57)
[2018-06-20] MEDS: NICOTINE 21 MG/24 HOURS TOPICAL PATCH TD SCH (09:58)
[2018-06-20] MEDS: ACETAMINOPHEN 325 MG TABLET (FP) PO PRN (09:58)
[2018-06-20] MEDS: QUEtiapine FUMARATE 100 MG TABLET (FP) PO SCH (21:37)
[2018-06-20] MEDS: THIAMINE HCL 100 MG TABLET (FP) PO SCH (21:37)
[2018-06-21] MEDS ORDERED: METHADONE HCL 40 MG DISPERSABLE TABLET ONE (03:01)
[2018-06-21] MEDS ORDERED: METHADONE HCL 10 MG TABLET ONE (03:01)
[2018-06-21] MEDS: METHADONE 80 MG, METHADONE 20 MG PO SCH (06:47)
[2018-06-21] MEDS: IBUPROFEN 400 MG TABLET (FP) PO PRN ×2 (06:48→21:54)
[2018-06-21] MEDS: PRENATAL VITAMINS W/ FOLIC ACID TABLET (FP) PO SCH (10:01)
[2018-06-21] MEDS: NICOTINE 21 MG/24 HOURS TOPICAL PATCH TD SCH (10:01)
[2018-06-21] MEDS ORDERED: COLLOIDAL OATMEAL 1 BAR EACH TP PRN (13:57)
[2018-06-21] MEDS: THIAMINE HCL 100 MG TABLET (FP) PO SCH (21:52)
[2018-06-21] MEDS: QUEtiapine FUMARATE 100 MG TABLET (FP) PO SCH (21:53)
[2018-06-22] MEDS ORDERED: METHADONE HCL 10 MG TABLET ONE (06:01)
[2018-06-22] MEDS ORDERED: METHADONE HCL 40 MG DISPERSABLE TABLET ONE (06:01)
[2018-06-22] MEDS: ACETAMINOPHEN 325 MG TABLET (FP) PO PRN (06:40)
[2018-06-22] MEDS: METHADONE 80 MG, METHADONE 20 MG PO SCH (06:40)
[2018-06-22] MEDS: NICOTINE 21 MG/24 HOURS TOPICAL PATCH TD SCH (10:46)
[2018-06-22] MEDS: PRENATAL VITAMINS W/ FOLIC ACID TABLET (FP) PO SCH (10:46)
[2018-06-22] MEDS: IBUPROFEN 400 MG TABLET (FP) PO PRN (17:28)
[2018-06-22] MEDS: THIAMINE HCL 100 MG TABLET (FP) PO SCH (21:52)
[2018-06-22] MEDS: QUEtiapine FUMARATE 100 MG TABLET (FP) PO SCH (21:52)
[2018-06-23] MEDS ORDERED: METHADONE HCL 10 MG TABLET ONE (03:25)
[2018-06-23] MEDS ORDERED: METHADONE HCL 40 MG DISPERSABLE TABLET ONE (03:26)
[2018-06-23] MEDS: METHADONE 80 MG, METHADONE 20 MG PO SCH (06:21)
[2018-06-23] MEDS: IBUPROFEN 400 MG TABLET (FP) PO PRN ×2 (06:22→21:15)
[2018-06-23] MEDS: PRENATAL VITAMINS W/ FOLIC ACID TABLET (FP) PO SCH (10:17)
[2018-06-23] MEDS: NICOTINE 21 MG/24 HOURS TOPICAL PATCH TD SCH (10:17)
[2018-06-23] MEDS: ACETAMINOPHEN 325 MG TABLET (FP) PO PRN (10:18)
[2018-06-23] MEDS: THIAMINE HCL 100 MG TABLET (FP) PO SCH (21:15)
[2018-06-23] MEDS: QUEtiapine FUMARATE 50 MG TABLET PO SCH (21:16)
[2018-06-23] MEDS: MELATONIN 5 MG TABLETS PO PRN (21:17)
[2018-06-24] MEDS ORDERED: METHADONE HCL 10 MG TABLET ONE (03:24)
[2018-06-24] MEDS ORDERED: METHADONE HCL 40 MG DISPERSABLE TABLET ONE (03:25)
[2018-06-24] MEDS: METHADONE 80 MG, METHADONE 20 MG PO SCH (06:32)
[2018-06-24] MEDS: IBUPROFEN 400 MG TABLET (FP) PO PRN (10:19)
[2018-06-24] MEDS: PRENATAL VITAMINS W/ FOLIC ACID TABLET (FP) PO SCH (10:19)
[2018-06-24] MEDS: NICOTINE 21 MG/24 HOURS TOPICAL PATCH TD SCH (10:19)
[2018-06-24] MEDS: QUEtiapine FUMARATE 50 MG TABLET PO SCH (21:43)
[2018-06-24] MEDS: THIAMINE HCL 100 MG TABLET (FP) PO SCH (21:43)
[2018-06-24] MEDS: MELATONIN 5 MG TABLETS PO PRN (21:43)
[2018-06-25] MEDS ORDERED: METHADONE HCL 10 MG TABLET ONE (06:01)
[2018-06-25] MEDS ORDERED: METHADONE HCL 40 MG DISPERSABLE TABLET ONE (06:01)
[2018-06-25] MEDS: METHADONE 80 MG, METHADONE 20 MG PO SCH (06:37)
[2018-06-25] MEDS: PRENATAL VITAMINS W/ FOLIC ACID TABLET (FP) PO SCH (10:29)
[2018-06-25] MEDS: IBUPROFEN 400 MG TABLET (FP) PO PRN ×2 (10:30→23:27)
[2018-06-25] MEDS: NICOTINE 21 MG/24 HOURS TOPICAL PATCH TD SCH (10:30)
--- NOTE | 2018-06-25 15:23 | PN ---
Psychiatric Progress Note Vital Signs: Vital Signs Period Temp Pulse Resp BP Sys/Osei Pulse Ox Last 24 Hr 97.4 F 73 16-16 96/61 Date of Session: 06/25/18 Chief Complaint:: Waylon having nightmares,interrupted sleep pattern. HPI: Significant for Opioid,cocaine dn Anxiolytic dependence comorbid with Bipolar disorder. ROS: BA. Current Medications: Active Medications Generic Name Dose Route Start Last Admin Trade Name Freq PRN Reason Stop Dose Admin Acetaminophen 650 mg 06/17/18 20:09 06/23/18 10:18 Tylenol - PO 650 mg Q4H PRN Administration FEVER Al Hydroxide/Mg Hydroxide 30 ml 06/17/18 20:09 Mylanta Oral Suspension - PO Q6H PRN DYSPEPSIA Albuterol Sulfate 1 amp 06/17/18 21:25 Ventolin 0.083% Nebulizer Soln - NEB Q4H PRN SHORT OF BREATH/WHEEZING Colloidal Oatmeal 1 applic 06/21/18 13:57 06/23/18 10:23 Aveeno Soap - TP 1 bar DAILY PRN Administration HYGEINE Eucalyptus/Menthol/Phenol/Sorbitol 1 each 06/17/18 20:09 Cepastat Lozenge - MM Q4H PRN SORE THROAT Guaifenesin 10 ml 06/17/18 20:09 Robitussin Dm - PO Q6H PRN COUGH Hydroxyzine Pamoate 100 mg 06/25/18 22:00 Vistaril - PO BID LIVIA Ibuprofen 400 mg 06/17/18 20:09 06/25/18 10:30 Motrin - PO 400 mg Q6H PRN Administration Pain level 4-6 Loperamide HCl 4 mg 06/17/18 20:09 Imodium - PO Q6H PRN DIARRHEA Magnesium Citrate 300 ml 06/17/18 20:09 Citroma - PO Q48H PRN CONSTIPATION Magnesium Hydroxide 30 ml 06/17/18 20:09 Milk Of Magnesia - PO DAILY PRN CONSTIPATION Melatonin 10 mg 06/25/18 15:14 Melatonin PO HS PRN INSOMNIA Methadone HCl 80 mg/ Methadone 100 mg 06/18/18 18:00 06/25/18 06:37 HCl 20 mg PO 100 mg DAILY@0600 LIVIA Administration Nicotine 21 mg 06/18/18 10:00 06/25/18 10:30 Nicoderm Patch - TD Not Given DAILY LIVIA Nicotine Polacrilex 2 mg 06/17/18 20:09 Nicorette Gum - BC Q2H PRN NICOTINE REPLACEMENT RX Multivit/Folic Acid/Iron 1 tab 06/18/18 10:00 06/25/18 10:29 Vitamins (Sjr) - PO 1 tab DAILY LIVIA Administration Pseudoephedrine/Triprolidine 1 combo 06/17/18 20:09 Actifed - PO TID PRN NASAL CONGESTION Quetiapine Fumarate 150 mg 06/23/18 18:01 06/24/18 21:43 Seroquel - PO 150 mg HS LIVIA Administration Thiamine HCl 100 mg 06/17/18 22:00 06/24/18 21:43 Vitamin B1 - PO 100 mg HS LIVIA Administration Current Side Effect: No Lab tests ordered: No Lab tests reviewed: Yes Provider note:: Patient was seen in my office today to address ongoing sleeping difficulties:nighmares,inability to fall asleep,interrupted sleep pattern. Properties of meleatonin has been discussed with the patient including side effects,benefits and dose adjustment.Melatonin 5 mg po hs will be adjusted to 10 mg po hs.Vistaril 50 mg po q 4 hrs will be adjusted to 100 mg po bid. supporive therapy provided as well as psychoeducation. Total face to face time:: 25 Mental Status Exam - Mental Status Exam Alert and Oriented to: Time, Place, Person Cognitive Function: Grossly Intact Patient Appearance: Well Groomed Mood: Anxious Affect: Labile Patient Behavior: Cooperative Speech Pattern: Clear Voice Loudness: Normal Thought Process: Goal Oriented Thought Disorder: Not Present Hallucinations: Denies Suicidal Ideation: Denies Homicidal Ideation: Denies Insight/Judgement: Fair Sleep: Difficulty falling asleep Appetite: Good Muscle strength/Tone: Normal Gait/Station: Normal Psychiatric Treatment Plan - Problem List (1) Cocaine dependence Current Visit: Yes Qualifiers: Substance use status: uncomplicated Qualified Code(s): F14.20 - Cocaine dependence, uncomplicated (2) Marijuana dependence Current Visit: Yes (3) Sedative hypnotic or anxiolytic dependence Current Visit: Yes (4) Asthma Current Visit: Yes Qualifiers: Asthma severity: mild Asthma complication type: with status asthmaticus (5) Methadone maintenance therapy patient Current Visit: Yes Comment: 100 MG VERIFICATION PENDING (6) Nicotine dependence Current Visit: Yes Qualifiers: Nicotine product type: cigarettes Substance use status: in withdrawal Qualified Code(s): F17.213 - Nicotine dependence, cigarettes, with withdrawal (7) Bipolar II disorder Current Visit: Yes
[2018-06-25] MEDS: QUEtiapine FUMARATE 50 MG TABLET PO SCH (21:29)
[2018-06-25] MEDS: hydrOXYzine PAMOATE 50 MG CAPSULE (FP) PO SCH (21:29)
[2018-06-25] MEDS: THIAMINE HCL 100 MG TABLET (FP) PO SCH (21:29)
[2018-06-25] MEDS: MELATONIN 5 MG TABLETS PO PRN (21:30)
[2018-06-26] MEDS ORDERED: METHADONE HCL 40 MG DISPERSABLE TABLET ONE (03:43)
[2018-06-26] MEDS ORDERED: METHADONE HCL 10 MG TABLET ONE (03:43)
[2018-06-26] MEDS: METHADONE 80 MG, METHADONE 20 MG PO SCH (06:37)
[2018-06-26] MEDS: hydrOXYzine PAMOATE 50 MG CAPSULE (FP) PO SCH ×2 (09:29→21:54)
[2018-06-26] MEDS: NICOTINE 21 MG/24 HOURS TOPICAL PATCH TD SCH (09:29)
[2018-06-26] MEDS: PRENATAL VITAMINS W/ FOLIC ACID TABLET (FP) PO SCH (09:29)
[2018-06-26] MEDS: IBUPROFEN 400 MG TABLET (FP) PO PRN (09:30)
[2018-06-26] MEDS: QUEtiapine FUMARATE 50 MG TABLET PO SCH (21:54)
[2018-06-26] MEDS: THIAMINE HCL 100 MG TABLET (FP) PO SCH (21:54)
[2018-06-27] MEDS ORDERED: METHADONE HCL 10 MG TABLET ONE (06:17)
[2018-06-27] MEDS ORDERED: METHADONE HCL 40 MG DISPERSABLE TABLET ONE (06:17)
[2018-06-27] MEDS: METHADONE 80 MG, METHADONE 20 MG PO SCH (06:47)
[2018-06-27] MEDS: NICOTINE 21 MG/24 HOURS TOPICAL PATCH TD SCH (10:37)
[2018-06-27] MEDS: hydrOXYzine PAMOATE 50 MG CAPSULE (FP) PO SCH ×2 (10:37→21:34)
[2018-06-27] MEDS: PRENATAL VITAMINS W/ FOLIC ACID TABLET (FP) PO SCH (10:37)
[2018-06-27] MEDS: IBUPROFEN 400 MG TABLET (FP) PO PRN (10:38)
[2018-06-27] MEDS: QUEtiapine FUMARATE 50 MG TABLET PO SCH (21:34)
[2018-06-27] MEDS: THIAMINE HCL 100 MG TABLET (FP) PO SCH (21:34)
[2018-06-27] MEDS: MELATONIN 5 MG TABLETS PO PRN (21:35)
[2018-06-28] MEDS ORDERED: METHADONE HCL 10 MG TABLET ONE (05:24)
[2018-06-28] MEDS ORDERED: METHADONE HCL 40 MG DISPERSABLE TABLET ONE (05:24)
[2018-06-28] MEDS: METHADONE 80 MG, METHADONE 20 MG PO SCH (06:26)
[2018-06-28] MEDS: hydrOXYzine PAMOATE 50 MG CAPSULE (FP) PO SCH ×2 (10:34→21:08)
[2018-06-28] MEDS: NICOTINE 21 MG/24 HOURS TOPICAL PATCH TD SCH (10:35)
[2018-06-28] MEDS: PRENATAL VITAMINS W/ FOLIC ACID TABLET (FP) PO SCH (10:36)
[2018-06-28] MEDS: THIAMINE HCL 100 MG TABLET (FP) PO SCH (21:08)
[2018-06-28] MEDS: QUEtiapine FUMARATE 50 MG TABLET PO SCH (21:08)
[2018-06-28] MEDS: MELATONIN 5 MG TABLETS PO PRN (21:10)
[2018-06-29] MEDS ORDERED: METHADONE HCL 40 MG DISPERSABLE TABLET ONE (03:33)
[2018-06-29] MEDS ORDERED: METHADONE HCL 10 MG TABLET ONE (03:33)
[2018-06-29] MEDS: METHADONE 80 MG, METHADONE 20 MG PO SCH (06:15)
[2018-06-29] MEDS: NICOTINE 21 MG/24 HOURS TOPICAL PATCH TD SCH (09:15)
[2018-06-29] MEDS: PRENATAL VITAMINS W/ FOLIC ACID TABLET (FP) PO SCH (09:16)
[2018-06-29] MEDS: hydrOXYzine PAMOATE 50 MG CAPSULE (FP) PO SCH ×2 (09:16→21:20)
[2018-06-29] MEDS: IBUPROFEN 400 MG TABLET (FP) PO PRN (15:43)
[2018-06-29] MEDS: MELATONIN 5 MG TABLETS PO PRN (21:20)
[2018-06-29] MEDS: THIAMINE HCL 100 MG TABLET (FP) PO SCH (21:20)
[2018-06-29] MEDS: QUEtiapine FUMARATE 50 MG TABLET PO SCH (21:20)
[2018-06-30] MEDS ORDERED: METHADONE HCL 10 MG TABLET ONE (03:24)
[2018-06-30] MEDS ORDERED: METHADONE HCL 40 MG DISPERSABLE TABLET ONE (03:24)
[2018-06-30] MEDS: METHADONE 80 MG, METHADONE 20 MG PO SCH (06:46)
[2018-06-30] MEDS: hydrOXYzine PAMOATE 50 MG CAPSULE (FP) PO SCH ×2 (10:22→21:36)
[2018-06-30] MEDS: PRENATAL VITAMINS W/ FOLIC ACID TABLET (FP) PO SCH (10:22)
[2018-06-30] MEDS: NICOTINE 21 MG/24 HOURS TOPICAL PATCH TD SCH (10:23)
[2018-06-30] MEDS: IBUPROFEN 400 MG TABLET (FP) PO PRN (10:24)
--- NOTE | 2018-06-30 16:48 | PN ---
Psychiatric Progress Note Vital Signs: Vital Signs Period Temp Pulse Resp BP Sys/Osei Pulse Ox Last 24 Hr 97.7 F 93 18 95/68 Date of Session: 06/30/18 Chief Complaint:: Discharge visit. HPI: patient addressed Cocaine ,Cannabis and Anxiolytic dependence comorbid with Bipolar disorder. ROS: Significant for BA. Current Medications: Active Medications Generic Name Dose Route Start Last Admin Trade Name Freq PRN Reason Stop Dose Admin Acetaminophen 650 mg 06/17/18 20:09 06/23/18 10:18 Tylenol - PO 650 mg Q4H PRN Administration FEVER Al Hydroxide/Mg Hydroxide 30 ml 06/17/18 20:09 06/29/18 15:44 Mylanta Oral Suspension - PO 30 ml Q6H PRN Administration DYSPEPSIA Albuterol Sulfate 1 amp 06/17/18 21:25 Ventolin 0.083% Nebulizer Soln - NEB Q4H PRN SHORT OF BREATH/WHEEZING Colloidal Oatmeal 1 applic 06/21/18 13:57 06/23/18 10:23 Aveeno Soap - TP 1 bar DAILY PRN Administration HYGEINE Eucalyptus/Menthol/Phenol/Sorbitol 1 each 06/17/18 20:09 Cepastat Lozenge - MM Q4H PRN SORE THROAT Guaifenesin 10 ml 06/17/18 20:09 Robitussin Dm - PO Q6H PRN COUGH Hydroxyzine Pamoate 100 mg 06/25/18 22:00 06/30/18 10:22 Vistaril - PO 100 mg BID LIVIA Administration Ibuprofen 400 mg 06/17/18 20:09 06/30/18 10:24 Motrin - PO 400 mg Q6H PRN Administration Pain level 4-6 Loperamide HCl 4 mg 06/17/18 20:09 Imodium - PO Q6H PRN DIARRHEA Magnesium Citrate 300 ml 06/17/18 20:09 Citroma - PO Q48H PRN CONSTIPATION Magnesium Hydroxide 30 ml 06/17/18 20:09 Milk Of Magnesia - PO DAILY PRN CONSTIPATION Melatonin 10 mg 06/25/18 15:14 06/29/18 21:20 Melatonin PO 10 mg HS PRN Administration INSOMNIA Methadone HCl 80 mg/ Methadone 100 mg 06/27/18 06:00 06/30/18 06:46 HCl 20 mg PO 100 mg DAILY@0600 LIVIA Administration Nicotine 21 mg 06/18/18 10:00 06/30/18 10:23 Nicoderm Patch - TD 21 mg DAILY LIVIA Administration Nicotine Polacrilex 2 mg 06/17/18 20:09 Nicorette Gum - BC Q2H PRN NICOTINE REPLACEMENT RX Multivit/Folic Acid/Iron 1 tab 06/18/18 10:00 06/30/18 10:22 Vitamins (Sjr) - PO 1 tab DAILY LIVIA Administration Pseudoephedrine/Triprolidine 1 combo 06/17/18 20:09 Actifed - PO TID PRN NASAL CONGESTION Quetiapine Fumarate 150 mg 06/23/18 18:01 06/29/18 21:20 Seroquel - PO 150 mg HS LIVIA Administration Thiamine HCl 100 mg 06/17/18 22:00 06/29/18 21:20 Vitamin B1 - PO 100 mg HS LIVIA Administration Current Side Effect: No Lab tests ordered: No Lab tests reviewed: Yes Provider note:: Patient will complete this program tomorrow 07/01/18.She has met her treatment goals and will continue to address her issues on outpatient basis at [facility],Patient continues to find that Seroquel 150 mg po hs help to cope with mood instability,sleeping difficulties.Scripts for 30 days provided. Supportive therapy provided focusing on relapse prevention. Patient is stable for discharge tomorrow. Total face to face time:: 30 Mental Status Exam - Mental Status Exam Alert and Oriented to: Time, Place, Person Cognitive Function: Grossly Intact Patient Appearance: Well Groomed Mood: Euthymic Affect: Appropriate, Mood Congruent Patient Behavior: Cooperative Speech Pattern: Clear Voice Loudness: Normal Thought Process: Goal Oriented Thought Disorder: Not Present Hallucinations: Denies Suicidal Ideation: Denies Homicidal Ideation: Denies Insight/Judgement: Fair Sleep: Fair Appetite: Good Muscle strength/Tone: Normal Gait/Station: Normal Psychiatric Treatment Plan - Problem List (1) Cocaine dependence Qualifiers: Substance use status: uncomplicated Qualified Code(s): F14.20 - Cocaine dependence, uncomplicated (4) Asthma Qualifiers: Asthma severity: mild Asthma complication type: with status asthmaticus (5) Methadone maintenance therapy patient Comment: 100 MG VERIFICATION PENDING (6) Nicotine dependence Qualifiers: Nicotine product type: cigarettes Substance use status: in withdrawal Qualified Code(s): F17.213 - Nicotine dependence, cigarettes, with withdrawal
[2018-06-30] MEDS: THIAMINE HCL 100 MG TABLET (FP) PO SCH (21:35)
[2018-06-30] MEDS: MELATONIN 5 MG TABLETS PO PRN (21:36)
[2018-06-30] MEDS: QUEtiapine FUMARATE 50 MG TABLET PO SCH (21:36)
[2018-06-30] MEDS: ACETAMINOPHEN 325 MG TABLET (FP) PO PRN (21:51)
[2018-07-01] MEDS ORDERED: METHADONE HCL 10 MG TABLET ONE (03:18)
[2018-07-01] MEDS ORDERED: METHADONE HCL 40 MG DISPERSABLE TABLET ONE (03:19)
[2018-07-01] MEDS: METHADONE 80 MG, METHADONE 20 MG PO SCH (06:31)
[2018-07-01 07:29] VITALS: BP 99/66; PULSE 68; TEMP 97.5
[2018-07-01] MEDS: hydrOXYzine PAMOATE 50 MG CAPSULE (FP) PO SCH (09:12)
[2018-07-01] MEDS: PRENATAL VITAMINS W/ FOLIC ACID TABLET (FP) PO SCH (09:13)
[2018-07-01] MEDS: NICOTINE 21 MG/24 HOURS TOPICAL PATCH TD SCH (09:13)
== END 2018-07-01 09:52 | disposition home or self-care (01) | DRG 772 ==
LOC: YASAS 15:52 → Y3E 18:02
PROVIDERS: ADMIT Psychiatry & Neurology Psychiatry; ATTEND Psychiatry & Neurology Psychiatry
PROC: HZ42ZZZ Group Counseling for Substance Abuse Treatment, Cognitive-Behavioral (ICD-10-PCS; principal; 2018-06-17)
DX: F14.20 Cocaine dependence, uncomplicated (principal); F13.20 Sedative, hypnotic or anxiolytic dependence, uncomplicated; F12.20 Cannabis dependence, uncomplicated; F11.20 Opioid dependence, uncomplicated; F17.213 Nicotine dependence, cigarettes, with withdrawal; F31.81 Bipolar II disorder; F41.9 Anxiety disorder, unspecified; J45.22 Mild intermittent asthma with status asthmaticus; Z91.5 Personal history of self-harm
CPT/HCPCS: 36415; 80053; 81003; 81015; 85027; 86593; 87389; 93005; 93010